=== PATIENT | female | born 1995 | race Caucasian/White ===

== ENCOUNTER 2020-06-11 09:12 | Emergency (ER) | payer MEDICAID, SELFPAY ==
[2020-06-11] VITALS (9 sets, daily range): BP systolic 102–129; BP diastolic 60–80; PULSE 71–90; RESP 18; TEMP 36.6; O2SAT 98–100; BMI 27.8
--- NOTE | 2020-06-11 09:21 | W.ED.PREGNAN ---
HPI - General: Chief complaint: OB/Uterine Contractions Stated complaint: cramping/throwing up/7 weeks Time Seen by Provider: 06/11/20 09:14 History of Present Illness: HPI Narrative: This patient is a healthy 24-year-old female who comes in today with left upper quadrant abdominal pain and vomiting. The pain started during the night and she is thrown up multiple times. She describes the pain as cramping in her upper and left abdomen. She notes that she has not had a bowel movement in several days. This morning she had a small bowel movement which she described as little jerod . Constipation is not a typical problem for her. She is 7 weeks and has had a little bit of morning sickness. She vomited a few nights ago as well but did not have the associated pain. This is her second and she had no complications with the first. She has not had any surgeries on her abdomen. She takes vitamins. She has not had any urinary symptoms or fever. MD Complaint: abdominal pain Onset (ago): hour(s) (6) Pain Consistency: intermittent and colicky Location: abdomen (Left upper quadrant) Severity: moderate Patient : Yes Number of Weeks : 7 OB History - Current : no complications care: followed by OB (Dr. Mendoza) Associated symptoms: Deny abdominal pain, headache(s), malaise, nausea or vomiting Review of Systems General: Reports: 10 or more systems reviewed and unremarkable except in HPI and below Const: Denies: fever(s), chills, fatigue or malaise Eyes: Denies: change in vision ENMT: Denies: odynophagia Card: Denies: chest pain or swelling of feet/ankles Resp: Denies: dyspnea, productive cough or non-productive cough GI: Denies: abdominal pain, nausea or vomiting : Denies: flank pain or difficulty voiding Musc: Denies: neck pain or back pain Skin/Breast: Denies: rash Neuro: Denies: headache(s), numbness in extremities or weakness in extremities Aashish/Lymph: Denies: easy bruising or easy bleeding Physical Exam Const: COMMON NORMALS: no acute distress, patient oriented x3, no limitations and alert GENERAL APPEARANCE: cooperative and comfortable HENMT: HEAD & SCALP: normal to inspection FACE & SINUS: normal facial exam Eye: GENERAL EYE: appearance normal, both eyes and all related structures Neck/C-Spine: COMMON NORMALS: supple, no meningeal signs and no JVD Chest: COMMONS NORMALS: normal inspection of the chest Resp: COMMON NORMALS: normal respiratory effort, No use of accessory muscles and clear to auscultation bilaterally AUSCULTATION: clear to auscultation bilaterally Cardio: COMMON NORMALS: no JVD, regular rate, regular rhythm and No murmurs present (Cardio) RATE: regular rate RHYTHM: regular rhythm GI: COMMON NORMALS: Normal to inspection, nondistended, normoactive bowel sounds present and Soft to palpation INSPECTION: Yes normal to inspection AUSCULTATION: Yes normoactive bowel sounds PALPATION: Yes Soft to palpation and Yes Tenderness to palpation present (GI) (Mild, diffuse, left upper quadrant and epigastric) Back/Pelvis: COMMON NORMALS: thoracic and lumbar spine normal to inspection Extremity: COMMON NORMALS: normal to inspection Neuro: COMMON NORMALS: patient oriented x3, moves all extremities, no focal motor deficits and no sensory deficits noted SENSORIUM/ORIENTATION: Yes alert MENINGEAL SIGNS: Yes no meningeal signs Psych: COMMON NORMALS: mental status grossly normal, cooperative and normal affect Skin: COMMON NORMALS: no rashes or lesions noted and turgor normal GENERAL SKIN EXAM: no rashes or lesions noted and turgor normal Procedures Perimortem Number of Weeks : 7 Course ED course: Patient in unremarkable ultrasound. She has an IUP consistent with her estimated dates. Her abdominal symptoms improved while she was here. We discussed [id number] medications that are safe in that she can use to treat gastritis, constipation. She was also encouraged to follow-up with her OB doctor. Vital Signs: Vital signs: Vital Signs Temperature 97.8 F 06/11/20 09:13 Pulse Rate 81 06/11/20 14:42 Respiratory Rate 18 06/11/20 14:42 Blood Pressure 102/64 06/11/20 14:42 Pulse Oximetry 100 06/11/20 14:42 MDM - OB/Uterine Contractions Lab Data: Labs: Lab Results 06/11/20 06/11/20 06/11/20 Range/Units 09:25 09:25 09:30 WBC 9.6 (4.0-10.0) 10^3/ uL RBC 3.99 L (4.1-5.3) 10^6/u L Hgb 12.5 (11.5-15.3) g/dL Hct 38.1 (37.0-47.0) % MCV 95.5 (81-99) fL MCH 31.3 (28.0-34.0) pg MCHC 32.8 (30.0-36.0) g/dL RDW 12.1 (12.1-15.1) % Plt Count 258 (130-400) 10^3/c mm MPV 8.6 (7.4-10.4) fL Neut % (Auto) 90.7 % Lymph % (Auto) 5.4 % [place] % (Auto) 3.3 % Eos % (Auto) 0.1 % Baso % (Auto) 0.2 % Neut # (Auto) 8.67 H (1.8-7.7) 10^3/u L Lymph # (Auto) 0.5 L (0.8-4.8) 10^3/u L [place] # (Auto) 0.3 (0.2-0.9) 10^3/u L Eos # (Auto) 0.0 (0.0-0.8) 10^3/u L Baso # (Auto) 0.0 (0.0-0.1) 10^3/u L Nucleated RBC % (a uto) 0 % Nucleated RBCs # 0.0 /100WBC Sodium 135 L (136-145) mmol/L Potassium 3.7 (3.5-5.1) mmol/L Chloride 100 (98-107) mmol/L Carbon Dioxide 22 (22-29) mmol/L Anion Gap 16.7 (5-19) BUN 10 (6-20) mg/dL Creatinine 0.4 L (0.5-0.9) mg/dL GFR Calculation 199.6 H (90-130) mL/min Glucose 97 (65-115) mg/dL Calculated Osmolal ity 279 L (285-295) mOsm/k g Calcium 9.0 (8.5-10.5) mg/dL Total Bilirubin 0.6 (0.15-1.2) mg/dL AST 13 (0-32) U/L ALT 11 (0-33) U/L Alkaline Phosphata se 47 (35-105) IU/L Total Protein 7.5 (6.6-8.7) g/dL Albumin 4.5 (3.5-5.2) g/dL Globulin 3.0 (1.3-4.6) g/dL Lipase 29 (13-60) U/L Ser , [place] [address].00 mIU/mL Urine Color Yellow (Yellow) Urine Appearance Clear (CLEAR) Urine pH 7 (5-7) Ur Specific Gravit y 1.005 (1.005-1.030) Urine Protein Neg (Negative) Urine Glucose (UA) Norm (Normal) Urine Ketones Negative (Negative) Urine Blood Neg (Negative) Urine Nitrate Negative (Negative) Urine Bilirubin Neg (Negative) Urine Urobilinogen 1 H (Negative) mg/dL Ur Leukocyte Sharonda ase Negative (Negative) Discharge Plan Discharge Patient Disposition: Home Clinical Impression: Abdominal pain Qualifiers: Abdominal location: left upper quadrant Qualified Code(s): R10.12 - Left upper quadrant pain Qualifiers: Weeks of gestation: less than 8 weeks Qualified Code(s): Z3A.01 - Less than 8 weeks gestation of Condition: Stable Prescriptions: No Action Lexapro 20 mg Tablet 20 mg PO DAILY RF: 0 Gummies 400 mcg-35 mg- 25 mg-5 mg Tablet,Chewable 2 tab PO DAILY RF: 0 Discharge Orders: Discharge Order (Routine); Ordered 06/11/20 Ordered By: Aletha Biswas Referrals: Stefanie Mendoza MD [Physician] - Kai Merchant Jr, MD [Primary Care Provider] - Discharge Diet: Advance as tolerated Discharge Activity: Resume usual activity Patient Instructions: (ED), Abdominal Pain (ED) Activity Restrictions/Additional Instructions: You can use [id number] antacids (check with the pharmacist to make sure that are safe in ) and stool softeners. Follow-up with Dr. Mendoza or return to the ER for new or worse symptoms. Discharge Date/Time: 06/11/20 14:42 Coding Level of Care Code ED Dinkey Engine Firer/Fireman for Chg Fwd Exam Comprehensive
[2020-06-11 09:38] LABS: Basophils % 0.2 %; Eosinophils % 0.1 %; Hematocrit 38.1 % (37.0-47.0); Hemoglobin 12.5 g/dL (11.5-15.3); Lymphocytes # 0.5 10^3/uL (0.8-4.8); Lymphocytes % 5.4 %; Mean Corpuscular HGB Conc 32.8 g/dL (30.0-36.0); Mean Corpuscular Hemoglobin 31.3 pg (28.0-34.0); Mean Corpuscular Volume 95.5 fL (81-99); Mean Platelet Volume 8.6 fL (7.4-10.4); Monocytes # 0.3 10^3/uL (0.2-0.9); Monocytes % 3.3 %; Neutrophils # 8.67 10^3/uL (1.8-7.7); Neutrophils % 90.7 %; Nucleated Red Blood Cells % 0 %; Platelet Count 258 10^3/cmm (130-400); Red Blood Count 3.99 10^6/uL (4.1-5.3); Red Cell Distribution Width 12.1 % (12.1-15.1); White Blood Count 9.6 10^3/uL (4.0-10.0)
[2020-06-11] MEDS: ondansetron 2 mg/ML SDV 2 mL 4 MG IVP (09:43)
[2020-06-11 09:48] LABS: Add Urine Microscopic? NO
[2020-06-11 09:57] LABS: Bilirubin Urine Neg (Negative); Blood Urine Neg (Negative); Glucose Urine UA Norm (Normal); Ketones Urine Negative (Negative); Leukocyte Esterase Urine Negative (Negative); Nitrate Urine Negative (Negative); Protein Urine Neg (Negative); Specific Gravity, Urine 1.005 (1.005-1.030); Urine Appearance Clear (CLEAR); Urine Color Yellow (Yellow); Urobilinogen Urine 1 mg/dL (Negative); pH Urine 7 (5-7)
[2020-06-11 10:10] LABS: Alanine Aminotransferase 11 U/L (0-33); Albumin Level 4.5 g/dL (3.5-5.2); Alkaline Phosphatase 47 IU/L (35-105); Anion Gap 16.7 (5-19); Aspartate Amino Transferase 13 U/L (0-32); Blood Urea Nitrogen 10 mg/dL (6-20); Carbon Dioxide 22 mmol/L (22-29); Chloride 100 mmol/L (98-107); Glomerular Filtration Rate 199.6 mL/min (90-130); Glucose 97 mg/dL (65-115); Lipase 29 U/L (13-60); Osmolality Calculated 279 mOsm/kg (285-295); Potassium 3.7 mmol/L (3.5-5.1); Sodium 135 mmol/L (136-145); Total Bilirubin 0.6 mg/dL (0.15-1.2); Total Protein 7.5 g/dL (6.6-8.7)
--- NOTE | 2020-06-11 10:52 | USR_ITS ---
PROCEDURE INFORMATION: Exam: US First Trimester, Transabdominal and US , Transvaginal Exam date and time: 06/11/2020 12:49 PM Age: 24 years old Clinical indication: Other: Abdominal pain; Gestational age or lmp: 6 wks 6 days by lmp (9-14-20); ; Additional info: Abd pain TECHNIQUE: Imaging protocol: Real-time transabdominal obstetrical ultrasound of the maternal pelvis and a first trimester , less than 14 weeks 0 days, with image documentation. Transvaginal imaging was used for better evaluation of the fetus, adnexa, and/or cervix. COMPARISON: None FINDINGS: Gestation: Intrauterine gestational sac containing yolk sac and pole. Based on the crown-rump length measurement of 8 mm, the estimated gestational age is 6 weeks +5 days. Embryonic/ heart rate: Documented cardiac activity with a heart rate of 138 bpm. MATERNAL: Uterus: Uterus measures 10.2 x 6.0 by 7.2 cm. Right adnexa: Right ovary measures 3.1 x 2.5 x 3.8 cm. Right ovarian blood flow demonstrated. Minimally complex 2.3 cm right ovarian cyst. Left adnexa: Left ovary measures 2.5 x 1.5 x 2.3 cm. Left ovarian blood flow demonstrated. Intraperitoneal space: No significant free fluid. Urinary bladder: Nondistended bladder. US/US OB <=14 wk fetus w transvag IMPRESSION: 1. Intrauterine gestational sac containing yolk sac and pole. Based on the crown-rump length measurement of 8 mm, the estimated gestational age is 6 weeks +5 days. 2. Minimally complex 2.3 cm right ovarian cyst.
--- NOTE | 2020-06-11 10:52 | USR_ITS ---
PROCEDURE INFORMATION: Exam: US Abdomen Complete Exam date and time: 06/11/2020 12:21 PM Age: 24 years old Clinical indication: Abdominal pain; ; Additional info: Abd pain, vomiting, 7 weeks , upper abdominal pain TECHNIQUE: Imaging protocol: Real-time ultrasound of the abdomen with image documentation. COMPARISON: No relevant prior studies available. FINDINGS: Liver: No focal hepatic mass. Gallbladder: No cholelithiasis, gallbladder wall edema, or pericholecystic fluid. Common bile duct: Normal caliber of the incompletely visualized common bile duct measuring 2 mm in diameter. Pancreas: No acute sonographic abnormality in the visualized pancreas. Kidneys: Normal renal morphology. No hydronephrosis. Spleen: No splenomegaly. Aorta: Normal caliber of the visualized abdominal aorta. Inferior vena cava: Unremarkable IVC. US/US abdomen complete* [id number] IMPRESSION: No acute sonographic abnormality in the visualized abdomen.
[2020-06-11] MEDS: acetaminophen 500 mg Tablet 1000 MG PO (11:49)
== END 2020-06-11 14:42 | disposition home or self-care (01) ==
PROVIDERS: Emergency Provider Emergency Medicine; PCP Pediatrics Adolescent Medicine
DX: O26.891 Other specified pregnancy related conditions, first trimester (principal); R10.12 Left upper quadrant pain; Z3A.01 Less than 8 weeks gestation of pregnancy
CPT/HCPCS: 12345; 76700; 76801; 76817; 80053; 81003; 83690; 84702; 85025; 96374; 96375; 99283; J2405

== ENCOUNTER 2020-07-28 07:30 | Emergency (ER) | payer MEDICAID, SELFPAY ==
[2020-07-28 07:31] VITALS: BP 127/86; PULSE 96; RESP 18; TEMP 36.5; O2SAT 98; BMI 27.6
[2020-07-28 08:00] VITALS: BP 121/78; PULSE 90; RESP 18; O2SAT 96
--- NOTE | 2020-07-28 08:29 | W.ED.FEMALGU ---
HPI - Female Genitourinary General: Chief complaint: Urogenital-Female Stated complaint: 13 weeks preg unable to urinate Time Seen by Provider: 07/28/20 07:40 History of Present Illness: HPI Narrative: Patient is a well-appearing G2, P1 24-year-old female at 13 weeks seen for inability to urinate. She complains of 7 of 10 pressure sensation in the suprapubic region. She states last time she was able to pass urine was yesterday. She also complains of constipation which is somewhat chronic. She states that it is not uncommon for her to go a week at a time without having a bowel movement. She states the last time she had a significant bowel movement was Friday the , and that she has had small jerod of stool passed since then 2 or 3 times but nothing significant. She denies vaginal discharge, vaginal bleeding, fever, dysuria, frequency, nausea, vomiting. She tried taking mag citrate once 3 days ago with no subsequent stooling. She states that once when she was a child she had to be admitted to the hospital for high-dose laxatives, but never required an NG tube or surgery. She is uncertain whether she ever had a suppository or enema. Review of Systems General: Reports: 10 or more systems reviewed and unremarkable except in HPI and below Physical Exam Const: COMMON NORMALS: no acute distress, patient oriented x3 and alert HENMT: COMMON NORMALS: normocephalic and atraumatic HEAD & SCALP: normocephalic and atraumatic Eye: COMMON NORMALS: Equal, round and reactive pupils present, EOMs intact bilaterally and no scleral icterus PUPIL: Yes Equal, round and reactive pupils present Resp: COMMON NORMALS: normal respiratory effort and No retractions Cardio: COMMON NORMALS: regular rate, regular rhythm and No murmurs present (Cardio) RATE: regular rate RHYTHM: regular rhythm GI: COMMON NORMALS: Normal to inspection, nondistended, normoactive bowel sounds present, Soft to palpation and non-tender PALPATION: Yes Soft to palpation GI image (female): 1. Suprapubic fullness and minor tenderness to palpation. Abdomen is soft and nonperitoneal with normal bowel sounds otherwise. Neuro: COMMON NORMALS: patient oriented x3 SENSORIUM/ORIENTATION: Yes alert Skin: COMMON NORMALS: no rashes or lesions noted GENERAL SKIN EXAM: no rashes or lesions noted Course Vital Signs: Vital signs: Vital Signs Temperature 97.7 F 07/28/20 07:31 Pulse Rate 85 07/28/20 10:34 Respiratory Rate 18 07/28/20 10:34 Blood Pressure 101/75 07/28/20 10:34 Pulse Oximetry 100 07/28/20 10:34 MDM - Female MDM Narrative: Medical decision making narrative: Patient remained hemodynamically stable through ED course. Bladder scan showed greater than 800 mL and a Black was placed. Because she is 13 weeks , I did not elect to shoot a KUB, but I trust that she is constipated and she has been constipated in the past requiring hospitalization and has not had a robust bowel movement in 7 days. Advised her to take high-dose MiraLAX to evacuate her bowels at which time she can have her Black removed. If her urinary retention persists after that, she will have to seek definitive care with urology. She shows good understanding agrees to plan She is was welcome back in the emergency department should her symptoms get worse before outpatient follow-up. Lab Data: Labs: Lab Results 07/28/20 07/28/20 Range/Units 08:45 08:45 Sodium 135 L (136-145) mmol/L Potassium 3.9 (3.5-5.1) mmol/L Chloride 103 (98-107) mmol/L Carbon Dioxide 22 (22-29) mmol/L Anion Gap 13.9 (5-19) BUN 4 L (6-20) mg/dL Creatinine 0.3 L (0.5-0.9) mg/dL GFR Calculation 278.2 H (90-130) mL/min Glucose 81 (65-115) mg/dL Calculated Osmolal ity 276 L (285-295) mOsm/k g Calcium 9.2 (8.5-10.5) mg/dL Urine Color Yellow (Yellow) Urine Appearance Clear (CLEAR) Urine pH 7.0 (5-7) Ur Specific Gravit y 1.010 (1.005-1.030) Urine Protein Neg (Negative) Urine Glucose (UA) Norm (Normal) Urine Ketones Negative (Negative) Urine Blood Neg (Negative) Urine Nitrate Negative (Negative) Urine Bilirubin Neg (Negative) Urine Urobilinogen Norm (Negative) mg/dL Ur Leukocyte Sharonda ase Negative (Negative) Discharge Plan Discharge Patient Disposition: Home Clinical Impression: Acute urinary retention, Constipation Condition: Stable Prescriptions: No Action Gummies 400 mcg-35 mg- 25 mg-5 mg Tablet,Chewable 2 tab PO DAILY RF: 0 Discharge Orders: Discharge ED (Routine); Ordered 07/28/20 Ordered By: John Capellan Referrals: Antony Marquez MD [Physician] - 1-3 days (Acute urinary retention, greater than 800 mL in bladder, 13 weeks , history of constipation. Black left in place) Kai Merchant Jr, MD [Primary Care Provider] - Discharge Diet: Usual diet Discharge Activity: Resume usual activity Activity Restrictions/Additional Instructions: At this time it is uncertain why you are unable to urinate, however you had a dangerously high volume of urine trapped in your bladder. For this reason, we left the Black catheter in place. Please take as many doses of MiraLAX as it takes to evacuate your bowels. This can be up to 4 L total volume. At that time, it is reasonable to attempt pulling the Black catheter. Hopefully at that time you are able to pass urine spontaneously. If not, you will have to return to the emergency department to have another catheter placed and then follow-up with urologist for more definitive care. Coding Level of Care Code ED Shipping Clerk Crating for Chg Fwd Exam Detailed
[2020-07-28 08:51] LABS: Add Urine Microscopic? NO
[2020-07-28 08:59] LABS: Bilirubin Urine Neg (Negative); Blood Urine Neg (Negative); Glucose Urine UA Norm (Normal); Ketones Urine Negative (Negative); Leukocyte Esterase Urine Negative (Negative); Nitrate Urine Negative (Negative); Protein Urine Neg (Negative); Urine Appearance Clear (CLEAR); Urine Color Yellow (Yellow); Urobilinogen Urine Norm (Negative)
[2020-07-28 09:10] VITALS: O2SAT 98
[2020-07-28 09:13] LABS: Anion Gap 13.9 (5-19); Blood Urea Nitrogen 4 mg/dL (6-20); Calcium 9.2 mg/dL (8.5-10.5); Carbon Dioxide 22 mmol/L (22-29); Chloride 103 mmol/L (98-107); Glomerular Filtration Rate 278.2 mL/min (90-130); Glucose 81 mg/dL (65-115); Osmolality Calculated 276 mOsm/kg (285-295); Potassium 3.9 mmol/L (3.5-5.1); Sodium 135 mmol/L (136-145)
[2020-07-28 09:40] VITALS: BP 130/83; PULSE 98; RESP 18; O2SAT 99
[2020-07-28 10:34] VITALS: BP 101/75; PULSE 85; RESP 18; O2SAT 100
== END 2020-07-28 10:34 | disposition home or self-care (01) ==
PROVIDERS: Emergency Provider Student in an Organized Health Care Education/Training Program; PCP Pediatrics Adolescent Medicine
DX: O26.891 Other specified pregnancy related conditions, first trimester (principal); R33.9 Retention of urine, unspecified; K59.00 Constipation, unspecified; Z3A.13 13 weeks gestation of pregnancy
CPT/HCPCS: 12345; 51702; 51798; 80048; 81003; 99282; 99283

== ENCOUNTER 2020-10-12 10:00 | Outpatient (CLI) | payer MEDICAID, SELFPAY ==
[2020-10-12] VITALS (7 sets, daily range): BP systolic 95–107; BP diastolic 55–59; PULSE 85–113; RESP 17; TEMP 28.3–35.5; BMI 32.7
[2020-10-12 11:04] LABS: Bilirubin Urine Neg (Negative); Blood Urine 3+ (Negative); Glucose Urine UA Norm (Normal); Ketones Urine Negative (Negative); Leukocyte Esterase Urine 2+ (Negative); Nitrate Urine Positive (Negative); Protein Urine 2+ (Negative); Specific Gravity, Urine 1.015 (1.005-1.030); Urine Appearance Cloudy (CLEAR); Urine Color Yellow (Yellow); Urobilinogen Urine Norm (Negative); pH Urine 6 (5-7)
[2020-10-12 11:15] LABS: Add Urine Culture? Yes; Bacteria Urine 1+ /hpf; WBC Urine TOO NUMEROUS TO CNT /hpf (0-5)
== END 2020-10-12 11:34 | disposition home or self-care (01) ==
LOC: OPOB 10:00 → OBGYN 10:02
PROVIDERS: PCP Family Medicine; Visit Provider Family Medicine
DX: O26.899 Other specified pregnancy related conditions, unspecified trimester (principal); Z3A.00 Weeks of gestation of pregnancy not specified; R10.9 Unspecified abdominal pain
CPT/HCPCS: 81001; 87077; 87086; 87186; 99211

== ENCOUNTER 2021-01-31 06:05 | Inpatient (IN) | payer MEDICAID, SELFPAY ==
[2021-01-31] VITALS (80 sets, daily range): BP systolic 92–136; BP diastolic 53–103; PULSE 68–107; RESP 16–18; TEMP 35.8–36.9; O2SAT 99–100; BMI 35.4
[2021-01-31 06:48] LABS: Basophils % 0.3 %; Eosinophils # 0.1 10^3/uL (0.0-0.8); Eosinophils % 0.6 %; Hematocrit 32.8 % (37.0-47.0); Hemoglobin 11.1 g/dL (11.5-15.3); Lymphocytes # 1.9 10^3/uL (0.8-4.8); Lymphocytes % 24.5 %; Mean Corpuscular HGB Conc 33.8 g/dL (30.0-36.0); Mean Corpuscular Volume 97.6 fL (81-99); Monocytes # 0.5 10^3/uL (0.2-0.9); Monocytes % 6.6 %; Neutrophils # 5.15 10^3/uL (1.8-7.7); Neutrophils % 66.7 %; Nucleated Red Blood Cells % 0 %; Platelet Count 230 10^3/cmm (130-400); Red Blood Count 3.36 10^6/uL (4.1-5.3); Red Cell Distribution Width 13.2 % (12.1-15.1); White Blood Count 7.7 10^3/uL (4.0-10.0)
[2021-01-31] MEDS: oxytocin 30 UNIT/500 ML BAG IV (06:52)
[2021-01-31] MEDS: dextrose 5%-lactated ringers 1,000 ML 125 ML IV ×2 (06:52→14:28)
[2021-01-31] MEDS: lactated ringers 1,000 ML 999 ML IV ×2 (09:45→11:02)
[2021-01-31] MEDS: fentaNYL 50 mcg/mL INJ 2mL IVP ×2 (09:45→12:57)
--- NOTE | 2021-01-31 11:04 | ANES.PREANE2 ---
Pre-Anesthetic Assessment Pre-Anesthetic Assessment: Height/Weight: Height 1.7 m Weight 102.512 kg Temp Pulse Resp BP Pulse Ox 97.7 F 82 17 117/59 100 01/31/21 10:56 01/31/21 11:00 01/31/21 09:45 01/31/21 11:00 01/31/21 10:57 Preop Diagnosis: IUP Proposed Procedure: Epidural Familial anesthetic complications: none Was Beta Kylah taken within 24 hours: N/A Was Clonidine taken within 24 hours: N/A Last intake: iceSubmitnets Social: Social History: No alcohol and No tobacco Exam: Pre-Anes Outpt Exam: alert, oriented x 3, clear to auscultation bilaterally and regular rate & rhythm Airway: Cervical ROM: WNL MP: 2 Dentition: Full Anesthetic Plan: ASA status: 2 Anesthesia: Regional (specify below) Risk of > 500 ml blood loss (7ml/kg in children): Yes, adequate IV access and fluids planned Meds/Allergies Current Medications: Current Medications Generic Name Dose Route Start Last Admin Trade Name Freq PRN Reason Stop Dose Admin Fentanyl 25 - 100 mcg 01/31/21 06:26 01/31/21 09:45 Fentanyl 50 Mcg/ Ml Inj 2ml IVP 25 mcg Q1H PRN Administration SEVERE PAIN Dextrose/Lactated Ringer's 1,000 mls @ 125 m ls/hr 01/31/21 06:30 01/31/21 10:02 Dextrose 5%-Lact ated Ringers IV 0 mls/hr .Q8H AMY Infusion Oxytocin 30 unit in 500 ml s @ 1 mls/hr 01/31/21 06:30 01/31/21 09:45 Pitocin IV 17 milliunit/min .Q24H AMY 17 mls/hr Titration Protocol 1 MILLIUNIT/MIN Ropivacaine 200 mg in 100 mls @ 13 mls/hr 01/31/21 09:15 01/31/21 11:02 Naropin Premix EPIDURAL 13 mls/hr .Q7H42M AMY Administration Lactated Ringer's 1,000 mls @ 999 m ls/hr 01/31/21 09:03 01/31/21 11:02 Lactated Ringers IV 999 mls/hr .Q1H1M PRN Administration See label comment s PFSH Anesthesia Female Reproductive History: : 2 Data Anesthesia CBC & Chem 7: 01/31/21 06:18 Other Labs: Laboratory Results - last 48 hr 01/31/21 06:18 WBC 7.7 RBC 3.36 L Hgb 11.1 L Hct 32.8 L MCV 97.6 MCH 33.0 MCHC 33.8 RDW 13.2 Plt Count 230 MPV 10.0 Neut % (Auto) 66.7 Lymph % (Auto) 24.5 [place] % (Auto) 6.6 Eos % (Auto) 0.6 Baso % (Auto) 0.3 Neut # (Auto) 5.15 Lymph # (Auto) 1.9 [place] # (Auto) 0.5 Eos # (Auto) 0.1 Baso # (Auto) 0.0 Nucleated RBC % (auto) 0 Nucleated RBCs # 0.0 Cardiac Studies: No Data to Display
--- NOTE | 2021-01-31 11:05 | ANES.PROC ---
Anesthesia Procedures Procedure/Date: 01/31/21 Epidural: Time Out Performed: Yes Consents Signed: Procedure Consent and NPO Consent Consent: requested by attending/covering physician, from patient, risks and benefits reviewed and patient agrees to proceed Lumbar Level: L3-L4 Epidural position: sitting Epidural procedure: sterile prep of area, 1% lidocaine to numb the area, 18 g needle, negative for paresthesia passed, neg for paresthesia, test dose given, 1.5% xylocaine 1:200k epi (5 cc), 0.2% Ropivacaine bolus ml (5 cc), placed PCEA, no systemic response, sterile dressing applied, L.U.D. no apparent complications and 0.2% Ropiavacaine @ mls/hr (13) Additional Comments: AURELIA at 7 cm, threaded to 12 cm. Residual L sided groin pain with subsequent contraction after test dose, but noted to be improved from prior to epidural. Started bolus. Awaited 2nd contraction. Still residual pain in L groin, but states even better over last contraction. Encouraged bolus use
[2021-01-31] MEDS: ondansetron 2 mg/ML SDV 2 mL 4 MG IVP (13:01)
--- NOTE | 2021-01-31 13:18 | PM.MISC ---
Miscellaneous Note Note: Called by Nurse, reported that patient was in 10/10 pain. Patient states she wasn't getting much relief from epidural and her contractions got worse. Decision was made to redo the epidural. However, upon sitting up for positioning patient vocalized that her legs were numb. Ice-water filled glove was then applied to different dermatomes. Patient lack cold sensation entirely on the R leg and torso. She did feel cold on L torso and had decreased cold sensation on L leg. 5 cc of 2% lidocaine was injected via epidural. Patient then had 3 subsequent contractions that she said were much improved and tolerable. Still rating 4 to 5 out of 10 pain. Patient declined replacement at that time, saying she was now comfortable.
[2021-01-31] MEDS: benzocaine-menthol 78 gm Canister 1 SPRAY TOPICAL (16:17)
[2021-01-31] MEDS: lanolin oint 7 gm 1 APPLIC TOPICAL (16:17)
[2021-01-31] MEDS: HYDROcodone-acetaminophen 5-325 mg Tablet PO (16:36)
--- NOTE | 2021-01-31 16:40 | PC.NURSE ---
Fundus devieated to pt right and at umbilicus. Pt up to bathroom without difficulty. Void 400mL. Ashley care performed. Gown/pad changed. Complete linen change and mattress pad placed. Pt back to bed. [place], ice water and sprite given. Fundus then firm/midline/-1. Small amount of bleeding.
[2021-01-31] MEDS: docusate sodium 100 mg Capsule PO (17:44)
[2021-01-31] MEDS: ibuprofen 800 mg tablet PO (20:34)
[2021-02-01 00:11] VITALS: BP 121/78; PULSE 76
[2021-02-01] MEDS: HYDROcodone-acetaminophen 5-325 mg Tablet PO (00:16)
[2021-02-01 03:50] LABS: Hematocrit 29.5 % (37.0-47.0); Hemoglobin 9.8 g/dL (11.5-15.3); Mean Corpuscular HGB Conc 33.2 g/dL (30.0-36.0); Mean Corpuscular Hemoglobin 33.2 pg (28.0-34.0); Mean Platelet Volume 9.6 fL (7.4-10.4); Platelet Count 165 10^3/cmm (130-400); Red Blood Count 2.95 10^6/uL (4.1-5.3); Red Cell Distribution Width 13.1 % (12.1-15.1); White Blood Count 8.6 10^3/uL (4.0-10.0)
[2021-02-01 04:53] VITALS: BP 123/69; PULSE 89
[2021-02-01] MEDS: acetaminophen 325 mg Tablet 650 MG PO (05:48)
[2021-02-01] MEDS: docusate sodium 100 mg Capsule PO (08:47)
[2021-02-01] MEDS: prenatal vitamin Capsule 1 CAP PO (08:47)
[2021-02-01] MEDS: ibuprofen 800 mg tablet PO (08:47)
[2021-02-01 08:49] VITALS: BP 125/77; PULSE 84; TEMP 37
--- NOTE | 2021-02-01 10:27 | PM.DCS ---
Discharge Providers Date of Admission: 01/31/21 06:05 Date of Discharge: February 01, 2021 Attending Provider at Admission: Stefanie Mendoza MD Attending Provider at Discharge: Stefanie Mendoza MD Primary Care Provider: Stefanie Mendoza MD Diagnoses at Discharge Discharge Diagnosis (1) Normal spontaneous vaginal delivery: Status: Acute Reason for Visit Reason for Visit: IUP Hospital Course Hospital Course This is a 25-year-old G2 now P2 who was admitted for postdate induction. She had a normal spontaneous vaginal delivery of a viable male infant. On day #1 she was ambulating, tolerating a regular diet, had average vaginal bleeding and was comfortable with discharge home. Physical Exam Narrative: EXAM NARRATIVE: Alert and oriented sitting up in bed. Abdomen is soft, nontender, fundus is firm U- 2. There is no calf tenderness, no edema Urinary Catheter Management^: Black: Cath Placed During This Visit: yes, but has since been removed by the nurse Reason for Continuing Indwelling Catheter: Decision to DC Catheter Urinary Catheter Date of Insertion: 01/31/21 Urinary Catheter Time of Insertion: 11:45 Date Urinary Catheter Removed: 01/31/21 Time Urinary Catheter Discontinued: 14:39 Discharge Data Data Completed and Pending: Labs from last 24 hours 02/01/21 03:45 WBC 8.6 RBC 2.95 L Hgb 9.8 L Hct 29.5 L MCV 100.0 H MCH 33.2 MCHC 33.2 RDW 13.1 Plt Count 165 MPV 9.6 Vitals: Last Vital Signs Temp 98.6 F 02/01/21 08:49 Pulse 84 02/01/21 08:49 Resp 17 01/31/21 17:24 BP 125/77 02/01/21 08:49 Pulse Ox 100 01/31/21 11:52 Discharge Plan Discharge Patient Disposition: Home Condition: Stable Prescriptions: Continued Gummies 400 mcg-35 mg- 25 mg-5 mg Tablet,Chewable 2 tab PO DAILY RF: 0 Discharge Orders: Discharge Order (Routine); Ordered 02/01/21 Ordered By: Stefanie Mendoza Referrals: Stefanie Mendoza MD [Primary Care Provider] - 03/01/21 10:00 am (Your 4 week appointment has been scheduled for 03/01/2021 at 10:[address] Mendoza.) Discharge Diet: Usual diet Discharge Activity: Limit activity as instructed Patient Instructions: , Depression (GEN), Bleeding (DC), OB Discharge Report, OB Food/Drug Interaction Guide, Opioid Safety, OB Proud Parent Packet, OB Vaginal Deliveries, Abnormal Bleeding Discharge Attestations Time Spent in Discharge Care*: less than 30 min Quality Metrics Clinical Quality Measures During this hospital stay, did patient experience: None Coding Level of Care Code Acute Chg FW DC note Diagnoses Normal spontaneous vaginal delivery O80
--- NOTE | 2021-02-01 10:37 | PM.DELIVERY ---
Delivery Note: Date of delivery: January 31, 2021 post-date dictation Pre-Delivery Course: Mother had routine care at [facility]. There were no complications during the . Her labs were unremarkable. Her GBS was negative. Delivery: This is a 25-year-old G2, P1 at 40 weeks 2 days gestation who was admitted for an elective postdate induction. Her cervix was favorable and she was started on Pitocin. She received an epidural for pain management. She underwent artificial rupture of membranes with clear fluid approximately 2 hours prior to delivery. She had a normal spontaneous vaginal delivery of a viable male infant Apgars 8 and 9 over an intact perineum. The was suctioned at delivery and placed on the mother's chest. The cord was clamped and cut. The placenta was delivered grossly intact and normal to inspection. There were no lacerations. Mother and infant were doing well after delivery. A&P Assessment and plan (1) Normal spontaneous vaginal delivery: Routine care Status: Acute Coding Level of Care Code Acute Preparation Room Worker for Abelardo Duarte Diagnoses Normal spontaneous vaginal delivery O80
[2021-02-01 15:47] VITALS: BP 143/70; PULSE 88; TEMP 36.4
[2021-02-01 15:55] VITALS: BP 143/70; PULSE 88; RESP 16; TEMP 36.4
== END 2021-02-01 15:55 | disposition home or self-care (01) | DRG 807 ==
PROVIDERS: Admitting Provider Family Medicine; PCP Family Medicine; Visit Provider Family Medicine
DX: O48.0 Post-term pregnancy (principal); Z37.0 Single live birth; Z3A.40 40 weeks gestation of pregnancy
CPT/HCPCS: 36415; 51702; 59409; 85025; 85027; 96374; 96375; J2405; J2795; J3010

== ENCOUNTER 2022-06-10 18:22 | Emergency (ER) | payer MEDICAID, SELFPAY ==
[2022-06-10 19:19] VITALS: BP 131/74; PULSE 103; RESP 16; TEMP 36.4; O2SAT 99
--- NOTE | 2022-06-10 22:49 | W.ED.PREGNAN ---
HPI - General: Chief complaint: Vaginal Bleeding Stated complaint: 12 weeks preg, thinks uterus is coming out of vag Time Seen by Provider: 06/10/22 22:34 Source: patient Mode of arrival: ambulatory Limitations: no limitations History of Present Illness: 26-year-old female currently 12 weeks states that she went to the bathroom 5 to 6 hours ago states she thought she had seen her uterus and was concerned she had a prolapsed uterus. She denies any bleeding she denies any pain she denies ever having a history of prolapse in the past she is unsure if she is actually prolapsing she states she thought she had seen something protruding from her vagina. This is her third and denies any problems with the previous pregnancies. Patient states she is also been severely constipated. Associated symptoms: Deny abdominal pain, dysuria, headache(s), nausea or vomiting Review of Systems Const: Denies: fever(s), chills, body aches or change in appetite Eyes: Denies: blurry vision or eye discomfort ENMT: Denies: throat pain or dental pain Card: Denies: chest pain Resp: Denies: dyspnea GI: Reports: constipation; Denies: abdominal pain, nausea, vomiting or diarrhea : Denies: dysuria Musc: Denies: neck pain or back pain Skin/Breast: Denies: rash Neuro: Denies: headache(s) Psych: Denies: depression Aashish/Lymph: Denies: easy bruising All/Imm: Denies: urticaria PFS ED PFSH: Medical History (Updated 06/10/22 @ 23:05 by Dillon Alvarez MD) No pertinent past medical history Social History (Updated 06/10/22 @ 22:50 by Dillon Alvarez MD) Substance/Drug Use: never Physical Exam Const: COMMON NORMALS: no acute distress and patient oriented x3 HENMT: COMMON NORMALS: atraumatic HEAD & SCALP: atraumatic Eye: COMMON NORMALS: conjunctivae normal CONJUNCTIVA: Yes conjunctivae normal Neck/C-Spine: COMMON NORMALS: supple Chest: COMMONS NORMALS: normal inspection of the chest Resp: COMMON NORMALS: normal respiratory effort Cardio: COMMON NORMALS: regular rate and regular rhythm RATE: regular rate RHYTHM: regular rhythm GI: INSPECTION: Yes normal to inspection : SPECULUM EXAM - CERVIX: No Cervical os open OB/EXTERNAL & SPECULUM: external exam normal; No Cervical os open Extremity: COMMON NORMALS: normal to inspection Neuro: COMMON NORMALS: patient oriented x3 Psych: COMMON NORMALS: mental status grossly normal Skin: COMMON NORMALS: no rashes or lesions noted GENERAL SKIN EXAM: no rashes or lesions noted Course Vital Signs: Vital signs: Vital Signs Temperature 97.6 F 06/10/22 19:19 Pulse Rate 103 H 06/10/22 19:19 Respiratory Rate 16 06/10/22 19:19 Blood Pressure 131/74 06/10/22 19:19 Pulse Oximetry 99 06/10/22 19:19 Oxygen Delivery Me thod 06/10/22 19:19 MDM - OB/Uterine Contractions Medical Decision Making Patient presents here with constipation pelvic exam here is normal no signs of prolapse we will prescribe her MiraLAX along with Reglan Discharge Plan Discharge Patient Disposition: Home Clinical Impression: Constipation Prescriptions: New Reglan 10 mg tablet 10 mg PO Q6H PRN (Reason: nausea and vomiting) Qty: 20 0RF Miralax 17 gram powder in packet 17 g PO DAILY PRN (Reason: constipation) Qty: 14 0RF No Action Gummies 400 mcg-35 mg- 25 mg-5 mg Tablet,Chewable 2 tab PO DAILY Discharge Orders: Discharge ED (Routine); Ordered 06/10/22 Ordered By: Dillon Alvarez Referrals: Stefanie Mendoza MD [Primary Care Provider] - Discharge Diet: Advance as tolerated Discharge Activity: Resume usual activity Patient Instructions: Constipation (ED) Coding Level of Care Code ED [employer] for Chg Fwd Exam Comprehensive
[2022-06-10 23:50] VITALS: BP 130/68; PULSE 90; RESP 16; TEMP 36.4; O2SAT 99
== END 2022-06-10 23:51 | disposition home or self-care (01) ==
PROVIDERS: Emergency Provider Emergency Medicine; PCP Family Medicine
DX: K59.00 Constipation, unspecified (principal)
CPT/HCPCS: 99283

== ENCOUNTER 2022-12-15 07:51 | Inpatient (IN) | payer MEDICAID, SELFPAY ==
[2022-12-15] VITALS (61 sets, daily range): BP systolic 94–142; BP diastolic 52–85; PULSE 59–91; RESP 15–17; TEMP 35.9–36.6; O2SAT 94–100; BMI 32.4
[2022-12-15 08:36] LABS: Basophils % 0.4 %; Eosinophils % 0.6 %; Hematocrit 29.5 % (37.0-47.0); Hemoglobin 9.7 g/dL (11.5-15.3); Lymphocytes # 1.4 10^3/uL (0.8-4.8); Lymphocytes % 20.6 %; Mean Corpuscular HGB Conc 32.9 g/dL (30.0-36.0); Mean Corpuscular Hemoglobin 31.1 pg (28.0-34.0); Mean Corpuscular Volume 94.6 fl (81-99); Mean Platelet Volume 9.7 fL (7.4-10.4); Monocytes # 0.4 10^3/uL (0.2-0.9); Monocytes % 6.3 %; Neutrophils # 4.91 10^3/uL (1.8-7.7); Neutrophils % 71.4 %; Nucleated Red Blood Cells % 0 %; Platelet Count 225 10^3/cmm (130-400); Red Blood Count 3.12 10^6/uL (4.1-5.3); Red Cell Distribution Width 13.3 % (12.1-15.1); White Blood Count 6.9 10^3/uL (4.0-10.0)
[2022-12-15] MEDS: lactated ringers 1,000 ML 999 ML IV (08:39)
[2022-12-15] MEDS: dextrose 5%-lactated ringers 1,000 ML 125 ML IV (09:57)
--- NOTE | 2022-12-15 09:57 | ANES.PREANE2 ---
Pre-Anesthetic Assessment Height/Weight: Height 1.7 m Weight 93.894 kg Pulse Resp BP O2 Del Method 73 15 122/71 Room Air 12/15/22 09:42 12/15/22 07:54 12/15/22 09:42 12/15/22 07:40 Preop Diagnosis: Labor Pains epidural Familial anesthetic complications: 1 sided block last epidural Was Beta Kylah taken within 24 hours: N/A Was Clonidine taken within 24 hours: N/A Social No alcohol and No tobacco Exam alert, oriented x 3, clear to auscultation bilaterally and regular rate & rhythm Airway Submandibular: within normal limits Cervical ROM: within normal limits Mallampati: Class II Dentition: full Pulmonary None reported CV/HEM None reported None reported Hepatic None reported GI Gastroesophageal Reflux Disease Metabolic None reported Musc/skel None reported Neuropsych Anxiety Anesthetic Plan ASA status: 2 Anesthesia: Regional (specify below) Risk of > 500 ml blood loss (7ml/kg in children): No Medications/Allergies Allergies Allergy/AdvReac Type Severity Reaction Status Date / Time sulfamethoxazole Allergy ALGY-Hives Verified 12/15/22 08:04 [From Bactrim] trimethoprim [From Bactrim] Allergy ALGY-Hives Verified 12/15/22 08:04 Current Medications Generic Name Dose Route Start Last Admin Trade Name Freq PRN Reason Stop Dose Admin Oxytocin 30 unit/ Sodium 503 mls @ 1 mls/hr 12/15/22 08:00 12/15/22 08:40 Chloride IV 1 ml/hr .Q24H AMY 1 mls/hr Administration Protocol Lactated Ringer's 1,000 mls @ 999 mls/hr 12/15/22 08:30 12/15/22 08:39 Lactated Ringers IV 999 mls/hr .Q1H1M PRN Administration See label comments PFSH Anesthesia Medical History (Updated 06/18/22 @ 00:00 by KRUNAL Draper) No pertinent past medical history Social History (Updated 06/10/22 @ 22:50 by Dillon Alvarez MD) Substance/Drug Use: never Female Reproductive History : 3 Data Anesthesia 12/15/22 07:53 Short CBC 12/15/22 Range/Units 07:53 WBC 6.9 (4.0-10.0) 10^3/uL Hgb 9.7 L (11.5-15.3) g/dL Hct 29.5 L (37.0-47.0) % MCV 94.6 (81-99) fl Plt Count 225 (130-400) 10^3/cmm Neut % (Auto) 71.4 % Neut # (Auto) 4.91 (1.8-7.7) 10^3/uL Cardiac Studies: No Data to Display
--- NOTE | 2022-12-15 10:27 | ANES.PROC ---
Anesthesia Procedures Procedure/Date: 12/15/22 epidural Procedure Narrative: epidural complete, bolus given, epidural pump initiated with PERSON[employer]EL QUALITY [employer]URANCE AUDITOR education given, vitals taken during procedure using OBIX system and satisfactory throughout, patient admits to decrease pain, report of procedure to OB RN Epidural: Time Out Performed: Yes Consents Signed: Procedure Consent Consent: requested by attending/covering physician, from patient, risks and benefits reviewed and patient agrees to proceed Lumbar Level: L3-L4 Epidural position: sitting Epidural procedure: sterile prep of area, 1% lidocaine to numb the area (3 mL), 18 g needle, negative for paresthesia passed, neg for paresthesia, test dose given, 1.5% xylocaine 1:200k epi (5 mL), 0.2% Ropivacaine bolus ml (5 mL), placed PCEA, no systemic response, sterile dressing applied, L.U.D. no apparent complications and 0.2% Ropiavacaine @ mls/hr (13 mL/hr)
--- NOTE | 2022-12-15 15:23 | PM.OPHPUD ---
Labor & Delivery H&P Update Date of Procedure: December 15, 2022 Date H&P Performed: 12/11/22 Admission Diagnosis: IUP at 39w4d gestation Preop diagnosis: Induction
--- NOTE | 2022-12-15 15:24 | PM.DELIVERY ---
Delivery Note: Date of delivery: December 15, 2022 Pre-Delivery Course: She had routine care at [facility] [address]. labs: Blood type AB+, antibody negative, rubella nonimmune, hepatitis B surface antigen nonreactive, hepatitis C nonreactive, HIV nonreactive, RPR nonreactive, urine drug screen negative, GC/chlamydia negative, she failed her 1 hour glucose tolerance test but passed a 3-hour glucose tolerance test. She was GBS negative. Delivery: This is a 27-year-old G3, P2 at 39 weeks 4 days gestation who was admitted for an elective induction. Her cervix was favorable and she was started on Pitocin. She received an epidural for pain management. When she was complete complete and +1 station she underwent artificial rupture of membranes with clear fluid. Less than 5 minutes later, she only had to push through 1 contraction and had a normal spontaneous vaginal delivery of a viable female weight 3240 g, 7 pounds 2 ounces, Apgars 8 and 9. There was a loose nuchal x2 that was reduced upon delivery. The was suctioned at delivery and placed on the mother's chest. The cord was clamped and cut. The placenta was delivered grossly intact and normal to inspection. There were no lacerations. Estimated blood loss 75 mL. Mother and infant were doing well after delivery. Coding Level of Care Code Acute Code for Chg Fwd Diagnoses
[2022-12-15] MEDS: benzocaine-menthol 78 gm Canister 1 SPRAY TOPICAL (17:52)
[2022-12-15] MEDS: lanolin oint 7 gm 1 APPLIC TOPICAL (17:52)
[2022-12-15] MEDS: docusate sodium 100 mg Capsule PO (17:52)
[2022-12-15] MEDS: ibuprofen 800 mg tablet PO (20:03)
[2022-12-16 00:56] VITALS: TEMP 35.7
[2022-12-16 00:57] VITALS: BP 140/71; PULSE 75
[2022-12-16 03:31] LABS: Hematocrit 29.7 % (37.0-47.0); Hemoglobin 9.5 g/dL (11.5-15.3); Mean Corpuscular Hemoglobin 30.9 pg (28.0-34.0); Mean Corpuscular Volume 96.7 fl (81-99); Mean Platelet Volume 9.5 fL (7.4-10.4); Platelet Count 206 10^3/cmm (130-400); Red Blood Count 3.07 10^6/uL (4.1-5.3); Red Cell Distribution Width 13.2 % (12.1-15.1); White Blood Count 8.6 10^3/uL (4.0-10.0)
[2022-12-16 04:15] VITALS: BP 116/67; PULSE 77
--- NOTE | 2022-12-16 07:40 | ANE.PACU2 ---
Inpatient post-anesthesia follow up: Airway intact: Yes Vital signs: Temperature 96.3 F Pulse Rate 77 Respiratory Rate 17 Blood Pressure 116/67 Pulse Oximetry 100 Oxygen Delivery Me thod Room Air Oxygen Flow Rate Fraction of Inspir ed Oxygen Hydration adequate: Yes Nausea and vomiting: No Pain level: 2 Mental status: Baseline
[2022-12-16 09:01] VITALS: BP 140/75; PULSE 78
[2022-12-16] MEDS: prenatal vitamin Capsule 1 CAP PO (09:01)
[2022-12-16] MEDS: docusate sodium 100 mg Capsule PO (09:01)
[2022-12-16] MEDS: ibuprofen 800 mg tablet PO ×2 (09:01→15:42)
[2022-12-16 09:02] VITALS: TEMP 35.9
--- NOTE | 2022-12-16 16:50 | PM.DCS ---
Discharge Providers Date of Admission: 12/15/22 07:51 Date of Discharge: December 16, 2022 Attending Provider at Admission: Stefanie Mendoza MD Attending Provider at Discharge: Stefanie Mendoza MD Primary Care Provider: Stefanie Mendoza MD Reason for Visit Reason for Visit: Induction Hospital Course Hospital Course This is a 27-year-old G3 now P3 who was admitted for an induction at 39 weeks 4 days gestation. She had an uncomplicated vaginal delivery of a viable female . Mother and did well after delivery. On day #1 she was ambulating, tolerating a regular diet, had essentially no pain and was comfortable with discharge home. Physical Exam Narrative: Alert and oriented, sitting up in bed, heart regular rate and rhythm, lungs clear to auscultation bilaterally, abdomen is soft and nontender, fundus is firm and U -2, extremities have slight edema but no calf tenderness Urinary Catheter Management: Black Latex: Cath Placed During This Visit: yes, but has since been removed by the nurse Reason for Continuing Indwelling Catheter: Decision to DC Catheter Urinary Catheter Date of Insertion: 12/15/22 Urinary Catheter Time of Insertion: 10:55 Date Urinary Catheter Removed: 12/15/22 Time Urinary Catheter Discontinued: 14:58 Discharge Data Studies Completed and Pending Laboratory Results WBC 8.6 10^3/uL (4.0-10.0) 12/16/22 03:22 RBC 3.07 10^6/uL (4.1-5.3) L 12/16/22 03:22 Hgb 9.5 g/dL (11.5-15.3) L 12/16/22 03:22 Hct 29.7 % (37.0-47.0) L 12/16/22 03:22 MCV 96.7 fl (81-99) 12/16/22 03:22 MCH 30.9 pg (28.0-34.0) 12/16/22 03:22 MCHC 32.0 g/dL (30.0-36.0) 12/16/22 03:22 RDW 13.2 % (12.1-15.1) 12/16/22 03:22 Plt Count 206 10^3/cmm (130-400) 12/16/22 03:22 MPV 9.5 fL (7.4-10.4) 12/16/22 03:22 Neut % (Auto) 71.4 % 12/15/22 07:53 Lymph % (Auto) 20.6 % 12/15/22 07:53 [place] % (Auto) 6.3 % 12/15/22 07:53 Eos % (Auto) 0.6 % 12/15/22 07:53 Baso % (Auto) 0.4 % 12/15/22 07:53 Neut # (Auto) 4.91 10^3/uL (1.8-7.7) 12/15/22 07:53 Lymph # (Auto) 1.4 10^3/uL (0.8-4.8) 12/15/22 07:53 [place] # (Auto) 0.4 10^3/uL (0.2-0.9) 12/15/22 07:53 Eos # (Auto) 0.0 10^3/uL (0.0-0.8) 12/15/22 07:53 Baso # (Auto) 0.0 10^3/uL (0.0-0.1) 12/15/22 07:53 Nucleated RBC % (auto) 0 % 12/15/22 07:53 Nucleated RBCs # 0.0 /100WBC 12/15/22 07:53 Vitals Last Vital Signs Temp 96.6 F L 12/16/22 09:02 Pulse 78 12/16/22 09:01 Resp 17 12/15/22 15:36 BP 140/75 12/16/22 09:01 Pulse Ox 100 12/15/22 10:43 O2 Del Method Room Air 12/15/22 07:40 Discharge Plan Discharge Patient Disposition: Home Condition: Stable Discharge Orders: Discharge Order (Routine); Ordered 12/16/22 Ordered By: Stefaine Mendoza Referrals: Stefanie Mendoza MD [Primary Care Provider] - 01/07/23 10:40 am (Your appointment with Dr. Mendoza is scheduled for January 07 at 10:40am. ) Discharge Diet: Usual diet Discharge Activity: Limit activity as instructed Patient Instructions: Depression (DC), Opioid Safety (DC), Preeclampsia and Eclampsia After Delivery (GEN), Hemorrhage (DC), OB Discharge Report, OB Food/Drug Interaction Guide, OB Care at Home, Opioid Safety, Abnormal Bleeding Discharge Attestations Time Spent in Discharge Care*: less than 30 min Quality Metrics Clinical Quality Measures [ No reported AMI, CVA or VTE this stay] Coding Level of Care Code Acute Code for Chg Fwd Diagnoses
[2022-12-16 17:29] VITALS: BP 132/76; PULSE 77; TEMP 36.3
== END 2022-12-16 17:30 | disposition home or self-care (01) | DRG 807 ==
LOC: OPOB 15:19 → OBGYN 15:19
PROVIDERS: Admitting Provider Family Medicine; PCP Family Medicine; Visit Provider Family Medicine
DX: O80 Encounter for full-term uncomplicated delivery (principal); Z37.0 Single live birth; Z3A.39 39 weeks gestation of pregnancy
CPT/HCPCS: 36415; 51702; 59025; 59409; 83986; 85025; 85027; 98960; 99211; J2795; J7040; J7120; J7121